=== PATIENT | male | born 1975 | race Caucasian/White ===

== ENCOUNTER 2017-05-01 18:51 | Emergency (ER) | payer MEDICAID ==
[~2017-05-01] VITALS: Ht 175.3 cm; Wt 85.5 kg
[~2017-05-01 18:51] MED LIST: AMLO-145 PO; ASPI-664 PO; ESCI10TA PO; HYDR25TA6 PO; ISOS30TA PO; LISI10TA2 PO
[2017-05-01 18:57] VITALS: Ht 175.3 cm; Wt 85.5 kg
[2017-05-01] MEDS ORDERED: ASPIRIN 325 MG TAB PO STA (20:08)
[2017-05-01] MEDS ORDERED: NITROGLYCERIN (SL) 0.4 MG TAB SL PRN (20:30)
[2017-05-01] MEDS ORDERED: SIMV20TA PO (20:53)
[2017-05-01] MEDS ORDERED: HYD25 PO (20:53)
[2017-05-01] MEDS ORDERED: METF500T4 PO (20:54)
[2017-05-01] MEDS ORDERED: ASPI-664 PO (20:54)
[2017-05-01] MEDS ORDERED: ESCI10TA48 PO (20:55)
[2017-05-01] MEDS ORDERED: AMLO-218 PO (20:55)
[2017-05-01] MEDS ORDERED: NEBI5TAB9 PO (20:55)
[2017-05-01] MEDS ORDERED: EMPA10TA PO (20:55)
[2017-05-01] MEDS ORDERED: CHOL500010 PO (20:56)
[2017-05-01] MEDS ORDERED: LISI40TA9 PO (20:56)
[2017-05-01 21:09] LABS: ANION GAP 22 (8-16); BLOOD UREA NITROGEN 15 mg/dl (7-20); CALCIUM 9.5 mg/dl (8.4-10.2); CARBON DIOXIDE 22 mmol/L (21-31); CHLORIDE 104 mmol/L (97-110); CREATININE 0.86 mg/dl (0.61-1.24); GLUCOSE 162 mg/dl (70-220); POTASSIUM 4.1 mmol/L (3.5-5.1); SODIUM 144 mmol/L (135-144)
[2017-05-01 21:12] LABS: BASOPHIL # 0.1 10^3/ul (0.0-0.1); BASOPHILS % 0.6 % (0.0-2.0); EOSINOPHILS # 0.4 10^3/ul (0.0-0.5); HEMATOCRIT 43.7 % (42.0-52.0); HEMOGLOBIN 16.4 g/dl (14.0-18.0); LYMPHOCYTES % 33.9 % (15.0-51.0); MEAN CORPUSCULAR HEMOGLOBIN 34.6 pg (29.0-33.0); MEAN CORPUSCULAR HGB CONC 37.5 g/dl (32.0-37.0); MEAN CORPUSCULAR VOLUME 92.2 fl (82.0-101.0); MEAN PLATELET VOLUME 9.6 fl (7.4-10.4); MONOCYTE # 0.5 10^3/ul (0.3-0.9); MONOCYTES % 6.2 % (0.0-11.0); NEUTROPHILS % 55.1 % (39.0-77.0); PLATELET COUNT 274 10^3/UL (140-415); RED BLOOD COUNT 4.74 10^6/ul (4.70-6.10); RED CELL DISTRIBUTION WIDTH 11.9 % (11.5-14.5); WHITE BLOOD COUNT 8.7 10^3/ul (4.8-10.8)
--- NOTE | 2017-05-01 21:27 | ERD ---
ER Documentation Chief Complaint Date/Time DATE: 05/01/17 TIME: 21:15 Chief Complaint pressure like chest pain on and off x 2 weeks HPI This 41-year-old male with history of hypertension comes in for left-sided chest pain intermittently for 2 weeks. No shortness of breath. Palpation makes the pain worse. Also gets numbness in his left upper arm. No nausea or vomiting ROS All systems reviewed and are negative except as per history of present illness. Medications Home Meds Active Scripts Ranitidine Hcl* (Zantac*) 150 Mg Tablet, 150 MG PO BID, #30 TAB Prov:QUINN NAVARRO DO 05/01/17 Reported Medications Cholecalciferol (Vitamin D3) 5,000 Unit Tablet, 5000 UNIT PO DAILY, TAB 05/01/17 Lisinopril* (Lisinopril*) 40 Mg Tablet, 40 MG PO DAILY, #30 TAB 05/01/17 Amlodipine Besylate* (Norvasc*) 10 Mg Tablet, 10 MG PO DAILY, TAB 05/01/17 Escitalopram Oxalate* (Escitalopram Oxalate*) 10 Mg Tablet, 10 MG PO DAILY, #30 TAB 05/01/17 Nebivolol* (Bystolic*) 5 Mg Tab, 5 MG PO DAILY, #30 TAB 05/01/17 Empagliflozin (Jardiance) 10 Mg Tablet, 10 MG PO DAILY, TAB 05/01/17 Aspirin* (Aspirin* EC) 81 Mg Tablet.dr, 81 MG PO DAILY, TAB 05/01/17 Metformin Hcl* (Metformin Hcl*) 500 Mg Tablet, 500 MG PO WITH BREAKFAST DINNE, # 60 TAB 05/01/17 Hydrochlorothiazide* (Hydrochlorothiazide*) 25 Mg Tab, 25 MG PO DAILY, #30 TAB 05/01/17 Simvastatin* (Zocor*) 20 Mg Tablet, 20 MG PO QHS, #30 TAB 05/01/17 Discontinued Reported Medications Escitalopram Oxalate* (Lexapro*) 10 Mg Tablet, 10 MG PO DAILY, TAB 05/25/14 Aspirin* (Aspirin* EC) 81 Mg Tablet.dr, 81 MG PO DAILY, TAB 05/25/14 Amlodipine Besylate* (Amlodipine Besylate*) 5 Mg Tablet, 5 MG PO DAILY for ELEVATED BLOOD PRESSURE 12/12/13 Hydrochlorothiazide (Hydrochlorothiazide) 25 Mg Tablet, 25 MG PO DAILY for ELEVATED BLOOD PRESSURE 12/12/13 Lisinopril* (Lisinopril*) 10 Mg Tablet, 40 MG PO DAILY for ELEVATED BLOOD PRESSURE 12/12/13 Discontinued Scripts Isosorbide Mononitrate* (Imdur*) 30 Mg Tab.sr.24h, 30 MG PO DAILY for 30 Days, TAB Prov:MOLLY ROBERTS. 05/27/14 Allergies Allergies: Coded Allergies: No Known Allergy (Unverified , 05/01/17) PMhx/Soc History of Surgery: Yes (tonsilectomy, surgery left index finger) Anesthesia Reaction: No Hx Neurological Disorder: No Hx Respiratory Disorders: No Hx Cardiac Disorders: Yes (HTN, hyperlipids) Hx Psychiatric Problems: Yes (ANXIETY) Hx Miscellaneous Medical Probl: Yes (DM) Hx Alcohol Use: Yes (OCCASSIONALLY) Hx Substance Use: No Hx Tobacco Use: Yes (OCCASSIONALLY) Smoking Status: Light tobacco smoker Physical Exam Vitals Vital Signs Date Time Temp Pulse Resp B/P Pulse Ox O2 Delivery O2 Flow Rate FiO2 05/01/17 22:08 66 18 141/81 98 Room Air 05/01/17 18:57 97.8 94 20 191/96 98 Physical Exam Const: [] No distress Head: Atraumatic Eyes: Normal Conjunctiva ENT: Normal External Ears, Nose and Mouth. Neck: Full range of motion..~ No meningismus. Resp: Clear to auscultation bilaterally Cardio: Regular rate and rhythm, no murmurs, Moderate tenderness to palpation of left anterior chest wall. Abd: Soft, non tender, non distended. Normal bowel sounds Skin: No petechiae or rashes Back: No midline or flank tenderness Ext: No cyanosis, or edema Neur: Awake and alertAnd oriented 3, no focal deficits Psych: Normal Mood and Affect Result Diagram: 05/01/17201905/01/172019 Results 24 hrs Laboratory Tests Test 05/01/17 20:20 White Blood Count 8.710^3/ul Red Blood Count 4.7410^6/ul Hemoglobin 16.4g/dl Hematocrit 43.7% Mean Corpuscular Volume 92.2fl Mean Corpuscular Hemoglobin 34.6pg Mean Corpuscular Hemoglobin Concent 37.5g/dl Red Cell Distribution Width 11.9% Platelet Count 62098^3/UL Mean Platelet Volume 9.6fl Neutrophils % 55.1% Lymphocytes % 33.9% Monocytes % 6.2% Eosinophils % 4.0% Basophils % 0.6% Nucleated Red Blood Cells % 0.0/100WBC Neutrophils # (Manual) 4.810^3/ul Lymphocytes # 3.010^3/ul Monocytes # 0.510^3/ul Eosinophils # 0.410^3/ul Basophils # 0.110^3/ul Nucleated Red Blood Cells # 0.010^3/ul Sodium Level 144mmol/L Potassium Level 4.1mmol/L Chloride Level 104mmol/L Carbon Dioxide Level 22mmol/L Anion Gap 22 Blood Urea Nitrogen 15mg/dl Creatinine 0.86mg/dl Glucose Level 162mg/dl Calcium Level 9.5mg/dl Troponin I < 0.012ng/ml B-Type Natriuretic Peptide < 11PG/ML Current Medications Medications (Trade) Dose Ordered Sig/Karen Route PRN Reason Start Time Stop Time Status Last Admin Dose Admin Aspirin (Aspirin) 325 mg ONCE STAT PO 05/01/17 20:08 05/01/17 20:10 DC 05/01/17 20:20 Nitroglycerin (Nitroglycerin (Sl Tab) 0.4 Mg) 1 tab Q5M UP TO 3 DOSES PRN SL CHEST PAIN 05/01/17 20:30 05/01/17 20:21 Ketorolac Tromethamine (Toradol) 30 mg ONCE ONCE IV 05/01/17 21:40 05/01/17 21:41 DC 05/01/17 21:45 Procedures/MDM Is 41-year-old male comes in for atypical chest pain. Is currently normal EKG. Was given aspirin, nitroglycerin tab, GI cocktail. Said his pain was better in the emergency room. No shortness of breath or any other symptoms currently. His troponin is negative after days of chest pain going to discharge with primary care follow-up in the next 2 days as well as recommendation for an outpatient echocardiogram. EKG interpretation: Normal sinus rhythm rate of 80, normal axis, normal intervals, no ST or T-wave changes concerning for acute ischemia. Normal EKG gambling monitor interpretation: Normal sinus rhythm without arrhythmias Chest x-ray interpretation: See no acute process, no widened mediastinum, pneumothorax, no fractures, no pulmonary edema. Departure Diagnosis: Primary Impression: Chest pain Condition: Stable QUINN NAVARRO DO May 01, 2017 21:25
[2017-05-01 21:32] LABS: B-TYPE NATRIURETIC PEPTIDE < 11 PG/ML (0-125); TROPONIN-I < 0.012 ng/ml (0.00-0.12)
[2017-05-01] MEDS ORDERED: KETOROLAC 30 MG INJ IV ONE (21:40)
--- NOTE | 2017-05-01 21:41 | RADRPT ---
PROCEDURE: XR Chest. CLINICAL INDICATION: Chest pain. TECHNIQUE: Single frontal view. COMPARISON: 05/25/2014. FINDINGS: The lungs are clear. The heart size is normal. There is no pleural effusion. There is no pneumothorax. IMPRESSION: 1. Normal chest radiograph. 2. No change from 05/25/2014. RPTAT: QQ .Michael Maher MD, MD Date Time Electronically viewed and signed by .Michael Maher MD, MD on 05/01/2017 21:41 .R/
[2017-05-01] MEDS ORDERED: RANI150T9 PO (22:07)
[2017-05-01 22:08] VITALS: BP 141/81; PULSE 66; RESP 18
== END 2017-05-01 22:22 | disposition home or self-care (01) ==
LOC: E/R 18:51
DX: R07.89 Other chest pain (principal); I10 Essential (primary) hypertension; E11.9 Type 2 diabetes mellitus without complications; F17.210 Nicotine dependence, cigarettes, uncomplicated; R06.02 Shortness of breath; Z79.82 Long term (current) use of aspirin; Z79.84 Long term (current) use of oral hypoglycemic drugs
CPT/HCPCS: 36415; 71010; 80048; 83880; 84484; 85025; 93005; 96374; J1885; Z7502; Z7610

== ENCOUNTER 2018-02-22 12:31 | Emergency (ER) | END 2018-02-22 16:26 | disposition home or self-care (01) ==

== ENCOUNTER 2018-12-03 17:20 | Observation (INO) | payer MEDICAID ==
[~2018-12-03] VITALS: Ht 167.6 cm; Wt 81.0 kg
[~2018-12-03 17:20] MED LIST changes: -AMLO-145 PO; +AMLO-218 PO; -ASPI-664 PO; +ASPI-817 PO; +CHOL500010 PO; +EMPA10TA PO; -ESCI10TA PO; +ESCI10TA48 PO; +IBUP-1542 PO; -ISOS30TA PO; -LISI10TA2 PO; +LISI40TA3 PO; +METF500T24 PO; +NEBI5TAB9 PO; +RANI150T35 PO; +SIMV20TA PO
[2018-12-03 17:36] VITALS: Ht 167.6 cm; Wt 81.0 kg
[2018-12-03] MEDS ORDERED: ASPIRIN 81 MG TAB PO STA (18:19)
[2018-12-03] MEDS ORDERED: ONDANSETRON 4 MG INJ IV STA (18:19)
[2018-12-03] MEDS ORDERED: NITROGLYCERIN 2% 1 GM OINT PKT TD STA (18:19)
[2018-12-03] MEDS ORDERED: morphine 4 MG/ML VIAL IV STA (18:19)
[2018-12-03] MEDS ORDERED: NITROGLYCERIN (SL) 0.4 MG TAB SL PRN ×2 (18:30→20:00)
--- NOTE | 2018-12-03 19:48 | ERD ---
ER Documentation Chief Complaint Chief Complaint CP radiating to L arm 06/10 X 1 day HPI Patient is a 43-year-old male with hypertension and diabetes who presents with chest pain. The patient has left-sided chest pain and left-sided arm pain. He also has headache. He feels like his left arm is asleep. He said the symptoms started this morning and have been constant. He tried Advil with no help. Upon review of old medical records this is the patient's sixth visit to the ER since 2012. He does have a primary doctor. ROS All systems reviewed and are negative except as per history of present illness. Medications Home Meds Active Scripts Ibuprofen* (Motrin*) 600 Mg Tab, 600 MG PO Q6H PRN for PAIN AND OR ELEVATED TEMP, #30 TAB Prov:AGNIESZKA HERNDON MD 02/22/18 Ranitidine Hcl* (Zantac*) 150 Mg Tablet, 150 MG PO BID, #30 TAB Prov:QUINN NAVARRO DO 05/01/17 Reported Medications Cholecalciferol (Vitamin D3) 5,000 Unit Tablet, 5000 UNIT PO DAILY, TAB 05/01/17 Lisinopril* (Lisinopril*) 40 Mg Tablet, 40 MG PO DAILY, #30 TAB 05/01/17 Amlodipine Besylate* (Norvasc*) 10 Mg Tablet, 10 MG PO DAILY, TAB 05/01/17 Escitalopram Oxalate* (Escitalopram Oxalate*) 10 Mg Tablet, 10 MG PO DAILY, #30 TAB 05/01/17 Nebivolol* (Bystolic*) 5 Mg Tab, 5 MG PO DAILY, #30 TAB 05/01/17 Empagliflozin (Jardiance) 10 Mg Tablet, 10 MG PO DAILY, TAB 05/01/17 Aspirin* (Aspirin* EC) 81 Mg Tablet.dr, 81 MG PO DAILY, TAB 05/01/17 Metformin Hcl* (Metformin Hcl*) 500 Mg Tablet, 500 MG PO WITH BREAKFAST DINNE, #60 TAB 05/01/17 Hydrochlorothiazide* (Hydrochlorothiazide*) 25 Mg Tab, 25 MG PO DAILY, #30 TAB 05/01/17 Simvastatin* (Zocor*) 20 Mg Tablet, 20 MG PO QHS, #30 TAB 05/01/17 Allergies Allergies: Coded Allergies: No Known Allergy (Unverified , 05/01/17) PMhx/Soc History of Surgery: Yes (tonsilectomy, surgery left index finger) Anesthesia Reaction: No Hx Neurological Disorder: No Hx Respiratory Disorders: No Hx Cardiac Disorders: Yes (HTN, hyperlipids) Hx Psychiatric Problems: Yes (ANXIETY) Hx Miscellaneous Medical Probl: Yes (DM) Hx Alcohol Use: Yes (OCCASSIONALLY) Hx Substance Use: No Hx Tobacco Use: Yes (OCCASSIONALLY) Smoking Status: Current some day smoker FmHx Family History: diabetes Physical Exam Vitals Vital Signs Date Temp Pulse Resp B/P (MAP) Pulse Ox O2 O2 Flow FiO2 Time Delivery Rate 12/03/18 75 15 142/94 Room Air 19:20 (110) 12/03/18 98.4 88 18 202/120 99 17:36 (147) Physical Exam Const: Moderate distress Head: Atraumatic Eyes: Normal Conjunctiva ENT: Normal External Ears, Nose and Mouth. Neck: Full range of motion. No meningismus. Resp: Clear to auscultation bilaterally Cardio: Regular rate and rhythm, no murmurs Abd: Soft, non tender, non distended. Normal bowel sounds Skin: No petechiae or rashes Back: No midline or flank tenderness Ext: No cyanosis, or edema Neur: Awake and alert, cranial nerves II through XII are intact, strength is 5 out of 5 in all 4 extremities Psych: Normal Mood and Affect Result Diagram: 12/03/18 1836 12/03/18 1836 Results 24 hrs Laboratory Tests Test 12/03/18 18:36 White Blood Count 9.3 10^3/ul Red Blood Count 5.45 10^6/ul Hemoglobin 17.9 g/dl Hematocrit 49.6 % Mean Corpuscular Volume 91.0 fl Mean Corpuscular Hemoglobin 32.8 pg Mean Corpuscular Hemoglobin Concent 36.1 g/dl Red Cell Distribution Width 11.5 % Platelet Count 290 10^3/UL Mean Platelet Volume 9.4 fl Immature Granulocytes % 0.400 % Neutrophils % 56.8 % Lymphocytes % 35.6 % Monocytes % 5.8 % Eosinophils % 0.9 % Basophils % 0.5 % Nucleated Red Blood Cells % 0.0 /100WBC Immature Granulocytes # 0.040 10^3/ul Neutrophils # 5.3 10^3/ul Lymphocytes # 3.3 10^3/ul Monocytes # 0.5 10^3/ul Eosinophils # 0.1 10^3/ul Basophils # 0.1 10^3/ul Nucleated Red Blood Cells # 0.0 10^3/ul Sodium Level 140 mmol/L Potassium Level 3.8 mmol/L Chloride Level 98 mmol/L Carbon Dioxide Level 27 mmol/L Anion Gap 15 Blood Urea Nitrogen 11 mg/dl Creatinine 0.69 mg/dl Est Glomerular Filtrat Rate mL/min > 60 mL/min Glucose Level 189 mg/dl Calcium Level 9.9 mg/dl Troponin I < 0.012 ng/ml Current Medications Medications Dose Sig/Karen Start Time Status Last (Trade) Ordered Route PRN Stop Time Admin Dose Reason Admin Aspirin 162 mg ONCE STAT 12/03/18 DC 12/03/18 (Aspirin) PO 18:19 12/03/18 18:43 18:20 1 inch ONCE STAT 12/03/18 DC 12/03/18 Nitroglycerin TD 18:12/03/18 18:43 18:20 (Nitroglyceri n 2% Oint) 1 tab Q5M UP TO 3 12/03/18 Nitroglycerin DOSES PRN 18:30 SL .CHEST (Nitroglyceri PAIN n (Sl Tab) 0.4 Mg) Morphine 4 mg ONCE STAT 12/03/18 DC 12/03/18 Sulfate IV 18:12/03/18 18:42 (morphine) 18:20 Ondansetron 4 mg ONCE STAT 12/03/18 DC 12/03/18 HCl (Zofran IV 18:12/03/18 18:42 Inj) 18:20 Procedures/MDM EKG read by me: Rate/Rhythm: Regular rate and rhythm at a rate of 75 Intervals: Normal Impression: No evidence of ischemia or arrhythmia Chest x-ray negative per radiology. CT scan of the brain negative per radiology. Smoking Cessation Therapy: Pt. was lectured for greater than 3 minutes on the health risks of continued smoking and the benefits of cessation. Patient is a 43-year-old male with multiple cardiac risk factors who presents with chest pain and headache. Initial troponin is negative. CT scan of the brain is negative. At this point I doubt pneumonia, pneumothorax, pulmonary embolism, or aortic dissection. I am concerned for possible acute coronary syndrome. The patient was given aspirin and nitroglycerin as well as morphine. The patient will be admitted to the care of Dr. Burk from the panel team to a telemetry observation bed. Departure Diagnosis: Primary Impression: Chest pain Chest pain type: unspecified Qualified Codes: R07.9 - Chest pain, unspecified Condition: DISHA Velez MD Dec 03, 2018 19:48
--- NOTE | 2018-12-03 19:57 | HP ---
Date/Time of Note Date/Time of Note DATE: 12/03/18 TIME: 19:57 Assessment/Plan VTE Prophylaxis SCD applied (from Nsg): Yes Pharmacological prophylaxis: NA/contraindicated Pharm contraindication: low risk/ambulating Lines/Catheters IV Catheter Type (from Nrsg): Saline Lock Assessment/Plan Hospital Course This is a 43-year-old male being admitted to the telemetry floor for observation for: #1: Chest pain: Rule out ACS versus musculoskeletal versus other: We will check an echocardiogram, cardiac enzymes x3, PRN nitro/morphine. Will check hemoglobin A1c, lipid panel, TSH. EKG is nonischemic. #2 Accelerated hypertension: Patient did present with systolic BP in the 200s. Will resume lisinopril, hydrochlorothiazide, amlodipine, monitor patient's blood pressures. #3 diabetes mellitus: We will check hemoglobin A 1C, currently will hold home oral medications in case of need for cardiac catheterization. #4 mood disorder: Continue escitalopram #5 GERD: Continue ranitidine #6 DVT GI prophylaxis: SCDs, no GI prophylaxis indicated Further treatment strategy will be implemented as per the clinical course. Result Diagram: 12/03/18 1836 12/03/18 1836 Results 24hrs Laboratory Tests Test 12/03/18 18:36 White Blood Count 9.3 # Red Blood Count 5.45 Hemoglobin 17.9 Hematocrit 49.6 Mean Corpuscular Volume 91.0 Mean Corpuscular Hemoglobin 32.8 Mean Corpuscular Hemoglobin Concent 36.1 Red Cell Distribution Width 11.5 Platelet Count 290 Mean Platelet Volume 9.4 Immature Granulocytes % 0.400 Neutrophils % 56.8 Lymphocytes % 35.6 Monocytes % 5.8 Eosinophils % 0.9 Basophils % 0.5 Nucleated Red Blood Cells % 0.0 Immature Granulocytes # 0.040 H Neutrophils # 5.3 Lymphocytes # 3.3 H Monocytes # 0.5 Eosinophils # 0.1 Basophils # 0.1 Nucleated Red Blood Cells # 0.0 Sodium Level 140 Potassium Level 3.8 Chloride Level 98 Carbon Dioxide Level 27 Anion Gap 15 H Blood Urea Nitrogen 11 Creatinine 0.69 Est Glomerular Filtrat Rate mL/min > 60 Glucose Level 189 Calcium Level 9.9 Troponin I < 0.012 HPI/ROS Admit Date/Time Admit Date/Time Hx of Present Illness Complaint: Chest pain This is a 43-year-old male with hypertension and diabetes who presents with chest pain. The patient has left-sided chest pain and left-sided arm pain. He also has headache. He feels like his left arm is asleep. He said the symptoms started this morning and have been constant. He tried Advil with no help. He states that he has had headaches and elevated blood pressure for the last few days. Allergies: NKDA Medications: See EARL IZQUIERDO Const: As per HPI Eyes : No pain discharge or redness or change in visual acuity ENT: No pain, sore throat, congestion, congestion, dysphagia or discharge Respiratory: No shortness of breath, cough, sputum, wheezing, or pleuritic pain Cardiovascular: As per HPI GI : no change in appetite, abdominal pain, nausea, vomiting, diarrhea, constipation, or change in the color his stool Genitourinary: No dysuria, hematuria, flank pain , discharge or CVA tenderness Musculoskeletal: No joint pain, back pain, neck pain, restricted range of motion in neck or joints Skin: No rash, bruising or hives Neuro: As per HPI Endocrine: No polyuria, polydipsia, temperature intolerance Psych: No hallucination, depression, anxiety or suicidal ideation PMH/Family/Social Past Medical History Hypertension, diabetes mellitus, mood disorder, GERD Medications Current Medications Nitroglycerin (Nitroglycerin (Sl Tab) 0.4 Mg) 1 tab Q5M UP TO 3 DOSES PRN SL .CHEST PAIN; Start 12/03/18 at 18:30 Ondansetron HCl (Zofran Inj) 4 mg ER BRIDGE PRN IV NAUSEA/VOMITING; Start 12/03/18 at 20:00; Stop 12/04/18 at 19:59 Acetaminophen (Tylenol Tab) 650 mg ER BRIDGE PRN PO .MILD PAIN 1-3 OR TEMP; Start 12/03/18 at 20:00; Stop 12/04/18 at 19:59 IV Flush (NS 3 ml) 3 ml PER PROTOCOL IV ; Start 12/03/18 at 20:00; Status UNV Ondansetron HCl (Zofran Inj) 4 mg Q6H PRN IV NAUSEA/VOMITING; Start 12/03/18 at 20:00; Status UNV Nitroglycerin (Nitroglycerin (Sl Tab) 0.4 Mg) 1 tab Q5M PRN SL .CHEST PAIN; Start 12/03/18 at 20:00; Status UNV Acetaminophen (Tylenol Tab) 650 mg Q6H PRN PO .PAIN 1-3 OR TEMP; Start 12/03/18 at 20:00; Status UNV Morphine Sulfate (morphine) 2 mg Q4H PRN IV .PAIN 7-10; Start 12/03/18 at 20:00; Status UNV Docusate Sodium (Colace) 100 mg Q12H PRN PO .CONSTIPATION; Start 12/03/18 at 20:00; Status UNV Bisacodyl (Dulcolax) 5 mg DAILY PRN PO .CONSTIPATION; Start 12/03/18 at 20:00; Status UNV Coded Allergies: No Known Allergy (Unverified , 12/03/18) Past Surgical History Diagnostic heart catheterization Family History Significant Family History: no pertinent family hx Social History Alcohol Use: none Smoking Status: Current some day smoker Drug Use: none Exam/Review of Systems Vital Signs Vitals Vital Signs Date Temp Pulse Resp B/P (MAP) Pulse Ox O2 O2 Flow FiO2 Time Delivery Rate 12/03/18 75 15 142/94 Room Air 19:20 (110) 12/03/18 98.4 99 17:36 Exam Exam General: Patient is a pleasant male currently lying in bed he does not appear to be in acute distress but he does have mild discomfort from his headache HEENT: Atraumatic, normocephalic. The pupils are equal, round and reactive. Extraocular motor are intact Neck: Supple with full range of motion. No rigidity or meningismus Chest: Nontender Lungs: Clear to auscultation bilaterally no crackles rales or wheezing Heart: Normal S1-S2, Regular rhythm and rate. No overt murmurs appreciated on auscultation Abdomen: Soft , nontender, nondistended , bowel sounds are present. No guarding no rebound tenderness , No masses or organomegaly. No costovertebral temporal angle mass Extremities: Normal to inspection, no edema no cyanosis Neurologic: Normal mental status, speech normal, cranial nerves II through XII are intact, motor and sensory are intact, Additional Comments PROCEDURE: CT Brain without contrast. CLINICAL INDICATION: Headache. TECHNIQUE: A CT of the brain without contrast was performed utilizing axial sections from the skull base through the vertex. One or more the following does reduction techniques were utilized: Automated exposure control, adjustment of the mA/ or kV according to patient's size, or use of iterative reconstruction technique. Total exam CTDIvol is 38 MGy and DLP is 634 mGy-cm. DICOM images are available. COMPARISON: Brain CT 05/25/2014. FINDINGS: The ventricles and sulci are age-appropriate. There is no intracranial hemorrhage, mass effect or midline shift. No abnormal intra-axial or extra- axial fluid collections are seen. The villanueva/white matter differentiation is preserved. No acute skull abnormality is noted. The visualized paranasal sinuses are essentially clear. IMPRESSION: 1. No acute intracranial hemorrhage, transcortical infarction or mass effect. RPTAT: N .Yolanda Martin MD, Date Time Electronically viewed and signed by .Yolanda Martin MD, MD on 12/03/2018 19:23 .N/ CC: DISHA EMMANUEL MD [id number] PROCEDURE: XR Chest, 1 View CLINICAL INDICATION: Chest pain. TECHNIQUE: Frontal view of the chest. COMPARISON: 05/25/2014 FINDINGS: LUNGS: Unremarkable. No consolidation. PLEURAL SPACE: Unremarkable. No pneumothorax. HEART: Unremarkable. No cardiomegaly. MEDIASTINUM: Unremarkable. BONES/JOINTS: Unremarkable. IMPRESSION: 1. No acute cardiopulmonary disease demonstrated. 2. There is no significant interval change from the previous study. RPTAT: [facility] Dae Youssef, Physician [employer] Mill Operator Date Time Electronically viewed and signed by Dae Youssef, Physician [employer] Mill Operator on 12/03/2018 18:53 RmC/ CC: DISHA EMMANUEL MD [id number] EKG Rate/Rhythm: Regular rate and rhythm at a rate of 75 Intervals: Normal Impression: No evidence of ischemia or arrhythmia SISSY LEIJA Dec 03, 2018 19:57
[2018-12-03] MEDS ORDERED: DOCUSATE SODIUM 100 MG CAP PO PRN (20:00)
[2018-12-03] MEDS ORDERED: ONDANSETRON 4 MG INJ IV PRN ×2 (20:00)
[2018-12-03] MEDS ORDERED: NACL 0.9% 3 ML SYG IV SCH (20:00)
[2018-12-03] MEDS ORDERED: morphine 2 MG INJ IV PRN (20:00)
[2018-12-03] MEDS ORDERED: ACETAMINOPHEN 325 MG TAB PO PRN ×2 (20:00)
[2018-12-03] MEDS ORDERED: BISACODYL (EC) 5 MG TAB PO PRN (20:00)
[2018-12-03 22:10] VITALS: PULSE 88
[2018-12-03 22:30] VITALS: BP 171/77; PULSE 88; RESP 18
[2018-12-03] MEDS ORDERED: hydrALAzine 20 MG INJ IV PRN (22:30)
[2018-12-04] VITALS (9 sets, daily range): BP systolic 124–144; BP diastolic 72–84; PULSE 49–77; RESP 19–22
[2018-12-04] MEDS: ESCITALOPRAM 10 MG TAB PO SCH (09:03)
[2018-12-04] MEDS: ASPIRIN (EC) 81 MG TAB PO SCH (09:03)
[2018-12-04] MEDS: AMLODIPINE 10 MG TAB PO SCH (09:03)
[2018-12-04] MEDS: RANITIDINE 150 MG TAB PO SCH ×2 (09:03→21:18)
[2018-12-04] MEDS: HYDROCHLOROTHIAZIDE 25 MG TAB PO SCH (09:04)
[2018-12-04] MEDS: LISINOPRIL 20 MG TAB PO SCH (09:04)
--- NOTE | 2018-12-04 09:30 | PN ---
Date/Time of Note Date/Time of Note DATE: 12/04/18 TIME: 09:29 Assessment/Plan VTE Prophylaxis Risk score (from Ns)>0 risk: 2 SCD applied (from Ns): No SCD contraindicated: low risk/ambulating Pharmacological prophylaxis: NA/contraindicated Pharm contraindication: low risk/ambulating Lines/Catheters IV Catheter Type (from [facility]): Saline Lock Urinary Cath still in place: No Assessment/Plan Hospital Course SUBJECTIVE: Denies any chest pain at this time. OBJECTIVE: Physical Exam General: Adequately build 43 year-old male lying in bed in no apparent distress. HEENT: Normocephalic, atraumatic. Eyes: Anicteric sclerae, conjunctivae clear. ENT: Nasal septum midline, oral mucosa moist. Neck supple, no JVD noticed. Respiratory: Bilaterally clear breath sounds. No use of accessory muscles of respiration. No adventitious breath sounds. Cardiovascular: S1, S2 heard. Regular rate and rhythm. Abdomen: Soft, nontender, and nondistended. Bowel sounds positive in all 4 quadrants. Genitourinary: Deferred. Extremities: No cyanosis, no clubbing, no edema. Peripheral pulses palpable. Neurologic: Cranial nerves II through XII grossly intact. The patient is awake, alert, and oriented. Skin: Normal skin turgor. No skin rashes. Labs & Vitals per chart ASSESSMENT & PLAN 43-year-old male with past medical history of hypertension, diabetes mellitus type 2, mood disorder, and GERD who came to the emergency room with a chief complaint of chest pain. The patient verbalized chest pain as left-sided with left-sided arm pain. In the emergency room, the patient was noticed to have a blood pressure of 202/120. The patient was admitted to inpatient setting for further treatment and evaluation. 1. Chest pain. -To rule out ACS. -Serial troponins negative so far. -Pending 2D echocardiogram. -Continue aspirin and statins. 2. Hypertensive urgency. -Lower blood pressure gradually. 3. Dyslipidemia. -Elevated total cholesterol and elevated triglycerides. -Continue statins. -Add omega-3. 4. Diabetes mellitus type 2. -Hemoglobin A1c 9.7. -Continue sliding scale insulin along with basal insulin and pre-meal insulin. 5. Nicotine use. -Cessation advised. 6. Mood disorder. -Continue mood stabilizers. 7. Fluids, electrolytes, and nutrition. -Carbohydrate controlled diet. 8. DVT prophylaxis -Bilateral SCDs. -Ambulation. 9. Plan. -Continue telemetry monitoring. -Await 2D echocardiogram. The patient was seen in collaboration with Dr. Gonzales. Result Diagram: 12/04/18 0612/04/18 0601 Results 24hrs Laboratory Tests Test 12/03/18 18:36 12/04/18 00:21 12/04/18 06:01 White Blood Count 9.3 # 8.1 Red Blood Count 5.45 4.99 Hemoglobin 17.9 16.0 Hematocrit 49.6 46.3 Mean Corpuscular Volume 91.0 92.8 Mean Corpuscular Hemoglobin 32.8 32.1 Mean Corpuscular Hemoglobin Concent 36.1 34.6 Red Cell Distribution Width 11.5 11.7 Platelet Count 290 263 Mean Platelet Volume 9.4 9.5 Immature Granulocytes % 0.400 0.400 Neutrophils % 56.8 57.5 Lymphocytes % 35.6 33.4 Monocytes % 5.8 6.6 Eosinophils % 0.9 1.7 Basophils % 0.5 0.4 Nucleated Red Blood Cells % 0.0 0.0 Immature Granulocytes # 0.040 H 0.030 Neutrophils # 5.3 4.6 Lymphocytes # 3.3 H 2.7 Monocytes # 0.5 0.5 Eosinophils # 0.1 0.1 Basophils # 0.1 0.0 Nucleated Red Blood Cells # 0.0 0.0 Sodium Level 140 139 Potassium Level 3.8 4.1 Chloride Level 98 102 Carbon Dioxide Level 27 25 Anion Gap 15 H 12 Blood Urea Nitrogen 11 14 Creatinine 0.69 0.74 Est Glomerular Filtrat Rate mL/min > 60 > 60 Glucose Level 189 182 Calcium Level 9.9 9.5 Troponin I < 0.012 < 0.012 < 0.012 Creatine Kinase 109 97 Creatine Kinase Index 0.3 0.3 Creatinine Kinase MB (Mass) 0.30 0.29 Hemoglobin A1c 9.7 H Magnesium Level 1.9 Total Bilirubin 0.6 Direct Bilirubin 0.00 Indirect Bilirubin 0.6 Aspartate Amino Transf (AST/SGOT) 35 Alanine Aminotransferase (ALT/SGPT) 22 Alkaline Phosphatase 82 Total Protein 6.7 Albumin 4.1 Globulin 2.60 Albumin/Globulin Ratio 1.57 Triglycerides Level 423 H Cholesterol Level 215 H LDL Cholesterol, Calculated 93 HDL Cholesterol 37 Cholesterol/HDL Ratio 5.8 Thyroid Stimulating Hormone (TSH) 2.040 Exam/Review of Systems Exam Vitals Vital Signs Date Temp Pulse Resp B/P (MAP) Pulse Ox O2 O2 Flow FiO2 Time Delivery Rate 12/04/18 63 08:07 12/04/18 98.5 22 144/84 96 Room Air 07:32 (104) Intake and Output 12/03/18 12/03/18 12/04/18 1515:00 23:00 07:00 IntakeIntake Total 400 ml BalanceBalance 400 ml Results Results 24hrs Laboratory Tests Test 12/03/18 18:36 12/04/18 00:21 12/04/18 06:01 White Blood Count 9.3 # 8.1 Red Blood Count 5.45 4.99 Hemoglobin 17.9 16.0 Hematocrit 49.6 46.3 Mean Corpuscular Volume 91.0 92.8 Mean Corpuscular Hemoglobin 32.8 32.1 Mean Corpuscular Hemoglobin Concent 36.1 34.6 Red Cell Distribution Width 11.5 11.7 Platelet Count 290 263 Mean Platelet Volume 9.4 9.5 Immature Granulocytes % 0.400 0.400 Neutrophils % 56.8 57.5 Lymphocytes % 35.6 33.4 Monocytes % 5.8 6.6 Eosinophils % 0.9 1.7 Basophils % 0.5 0.4 Nucleated Red Blood Cells % 0.0 0.0 Immature Granulocytes # 0.040 H 0.030 Neutrophils # 5.3 4.6 Lymphocytes # 3.3 H 2.7 Monocytes # 0.5 0.5 Eosinophils # 0.1 0.1 Basophils # 0.1 0.0 Nucleated Red Blood Cells # 0.0 0.0 Sodium Level 140 139 Potassium Level 3.8 4.1 Chloride Level 98 102 Carbon Dioxide Level 27 25 Anion Gap 15 H 12 Blood Urea Nitrogen 11 14 Creatinine 0.69 0.74 Est Glomerular Filtrat Rate mL/min > 60 > 60 Glucose Level 189 182 Calcium Level 9.9 9.5 Troponin I < 0.012 < 0.012 < 0.012 Creatine Kinase 109 97 Creatine Kinase Index 0.3 0.3 Creatinine Kinase MB (Mass) 0.30 0.29 Hemoglobin A1c 9.7 H Magnesium Level 1.9 Total Bilirubin 0.6 Direct Bilirubin 0.00 Indirect Bilirubin 0.6 Aspartate Amino Transf (AST/SGOT) 35 Alanine Aminotransferase (ALT/SGPT) 22 Alkaline Phosphatase 82 Total Protein 6.7 Albumin 4.1 Globulin 2.60 Albumin/Globulin Ratio 1.57 Triglycerides Level 423 H Cholesterol Level 215 H LDL Cholesterol, Calculated 93 HDL Cholesterol 37 Cholesterol/HDL Ratio 5.8 Thyroid Stimulating Hormone (TSH) 2.040 Medications Medication Current Medications Ondansetron HCl (Zofran Inj) 4 mg ER BRIDGE PRN IV NAUSEA/VOMITING; Start 12/03/18 at 20:00; Stop 12/04/18 at 19:59 Acetaminophen (Tylenol Tab) 650 mg ER BRIDGE PRN PO .MILD PAIN 1-3 OR TEMP; Start 12/03/18 at 20:00; Stop 12/04/18 at 19:59 IV Flush (NS 3 ml) 3 ml PER PROTOCOL IV ; Start 12/03/18 at 20:00 Ondansetron HCl (Zofran Inj) 4 mg Q6H PRN IV NAUSEA/VOMITING; Start 12/03/18 at 20:00 Nitroglycerin (Nitroglycerin (Sl Tab) 0.4 Mg) 1 tab Q5M PRN SL .CHEST PAIN; Start 12/03/18 at 20:00 Acetaminophen (Tylenol Tab) 650 mg Q6H PRN PO .PAIN 1-3 OR TEMP; Start 12/03/18 at 20:00 Morphine Sulfate (morphine) 2 mg Q4H PRN IV .PAIN 7-10; Start 12/03/18 at 20:00 Docusate Sodium (Colace) 100 mg Q12H PRN PO .CONSTIPATION; Start 12/03/18 at 20:00 Bisacodyl (Dulcolax) 5 mg DAILY PRN PO .CONSTIPATION; Start 12/03/18 at 20:00 Hydralazine HCl (Apresoline) 10 mg Q4H PRN IV ELEVATED BLOOD PRESSURE; Start 12/03/18 at 22:30 Amlodipine Besylate (Norvasc) 10 mg DAILY PO Last administered on 12/04/18at 09:03; Admin Dose 10 MG; Start 12/04/18 at 09:00 Aspirin (Halfprin) 81 mg DAILY PO Last administered on 12/04/18at 09:03; Admin Dose 81 MG; Start 12/04/18 at 09:00 Escitalopram Oxalate (Lexapro) 10 mg DAILY PO Last administered on 12/04/18at 09:03; Admin Dose 10 MG; Start 12/04/18 at 09:00 Hydrochlorothiazide (Hydrochlorothiazide) 25 mg DAILY PO Last administered on 12/04/18 09:04; Admin Dose 25 MG; Start 12/04/18 at 09:00 Lisinopril (Zestril) 40 mg DAILY PO Last administered on 12/04/18at 09:04; Admin Dose 40 MG; Start 12/04/18 at 09:00 Ranitidine HCl (Zantac) 150 mg BID PO Last administered on 12/04/18at 09:03; Admin Dose 150 MG; Start 12/04/18 at 09:00 Atorvastatin Calcium (Lipitor) 10 mg DAILY@21 PO ; Start 12/04/18 at 21:00 JOHANA OCONNOR NP Dec 04, 2018 09:30
[2018-12-04] MEDS: FISH OIL 1,000 MG CAP PO SCH ×2 (10:16→21:17)
[2018-12-04] MEDS: INSULIN ASPART [NOVOLOG] 3 ML PEN SC SCH ×5 (12:29→21:00)
--- NOTE | 2018-12-04 15:50 | RADRPT ---
Echocardiogram Report Patient Name: RAKEL ROSALESPatient ID: [id number] : 1975 (43y 5m)Study Date: 12/04/2018 9:36:09 AM Gender: MAccession #: [id number] Tech: LE Location: Ref.Physician: SISSY LEIJA Height(Cm): BSA: Weight(Kg): Quality: GoodAccount #: Procedures: Echocardiographic Report: Transthoracic echocardiogram with complete 2D, M-Mode, and doppler examination. Indications: Chest Pain. Measurements: 2D/M Mode Doppler Measurement Value Normal Range Measurement Value Normal Range AoR Diam MM 2.9 [ 2.6 - 3.4 ] cm ESEQUIEL Vmax 2.3 [ 2.0 - 4.0 ] cm2 ACS MM 1.9 [ 3.1 - 3.7 ] cm AV Mean Rolo 1.0 [ 70.0 - 90.0 ] cm/sec LA/Ao MM 1.3 ratio AV Mean PG 4.0 [ 2.0 - 4.0 ] mmHg LA Dimen MM 3.9 AV Peak Rolo 1.4 [ 100.0 - 170.0 ] cm/sec LVIDd 2D 5.3 [ 4.2 - 5.8 ] cm AV Peak PG 8.0 [ 2.0 - 9.0 ] mmHg LVIDs 2D 3.8 [ 2.5 - 4.0 ] cm AV VTI 25.2 cm LVPWd 2D 1.1 [ 0.6 - 1.0 ] cm LVOT Peak Rolo 1.1 [ 70.0 - 110.0 ] cm/sec IVSd 2D 1.1 [ 0.6 - 1.0 ] cm LVOT Peak PG 5.0 [ 2.0 - 6.0 ] mmHg IVS/LVPW 2D 1.0 ratio MV E Peak Rolo 0.9 [ 60.0 - 130.0 ] cm/sec LVOT Diam 1.9 [ 2.3 - 2.9 ] cm MV A Peak Rolo 0.5 [ 100.0 - 120.0 ] cm/sec LVOT Area 2.8 cm2 MV E/A 1.7 [ 0.8 - 1.5 ] ratio MV Decel Time 180 [ 104 - 258 ] msec Lat E` Rolo 0.1 [ 10.0 - 15.0 ] cm/sec Med E` Rolo 0.1 cm/sec MV E/A 1.7 [ 0.8 - 1.5 ] ratio TR Peak Rolo 2.3 [ 100.0 - 280.0 ] cm/sec TR Peak PG 22.0 mmHg PV Peak Rolo 0.6 [ 40.0 - 80.0 ] cm/sec PV Peak PG 2.0 mmHg Findings: Left Ventricle: Normal left ventricular systolic function. Normal left ventricular cavity size. Normal left ventricular wall thickness. Ejection fraction is visually estimated at 55-60 %. Tissue Doppler/Mitral Doppler indices are within normal limits. Right Ventricle: Normal right ventricular size. Normal right ventricular systolic function. Left Atrium: The left atrium is normal in size. Right Atrium: The right atrium is normal in size. Mitral Valve: Normal appearance of the mitral valve. Normal appearance and function of the mitral valve with trace physiologic regurgitation. Aortic Valve: Normal appearance of the aortic valve. No significant aortic stenosis or insufficiency. Tricuspid Valve: Normal appearance of the tricuspid valve. Estimated peak PA systolic pressure 25 mmHg. There is trace tricuspid regurgitation. Pulmonic Valve: Normal pulmonic valve appearance. Pericardium: Normal pericardium with no significant pericardial effusion. Aorta: Normal aortic root. IVC: Normal size and normal respiratory collapse consistent with normal right atrial pressure. Conclusions: Normal left ventricular systolic function. Normal left ventricular cavity size. Normal left ventricular wall thickness. Ejection fraction is visually estimated at 55-60 %. Tissue Doppler/Mitral Doppler indices are within normal limits. No significant valvular stenosis or regurgitation seen. Estimated peak PA systolic pressure 25 mmHg.Normal size and normal respiratory collapse consistent with normal right atrial pressure. Electronically Signed By: Juaquin Law 2018-12-04 15:49:36 PDT
[2018-12-04] MEDS ORDERED: INSULIN GLARGINE [LANTus] (100 UNITS/ML) SYG SC SCH (20:00)
[2018-12-04] MEDS ORDERED: NON-FORMULARY/PATIENT OWN MED (Simvastatin* (Zocor*) 20 MG) PO SCH (21:00)
[2018-12-04] MEDS ORDERED: ATORVASTATIN 40 MG TAB PO SCH (21:00)
[2018-12-04] MEDS ORDERED: ATORVASTATIN 10 MG TAB PO SCH (21:00)
[2018-12-05] VITALS: BP 122/73; PULSE 49; PULSE 58; RESP 19
[2018-12-05 04:00] VITALS: BP 119/73; PULSE 56; RESP 22
[2018-12-05 04:04] VITALS: PULSE 52
[2018-12-05 07:10] VITALS: BP 139/78; PULSE 74; RESP 18
[2018-12-05 08:05] VITALS: PULSE 66
[2018-12-05] MEDS: HYDROCHLOROTHIAZIDE 25 MG TAB PO SCH (08:06)
[2018-12-05] MEDS: RANITIDINE 150 MG TAB PO SCH (08:06)
[2018-12-05] MEDS: LISINOPRIL 20 MG TAB PO SCH (08:07)
[2018-12-05] MEDS: ASPIRIN (EC) 81 MG TAB PO SCH (08:07)
[2018-12-05] MEDS: AMLODIPINE 10 MG TAB PO SCH (08:07)
[2018-12-05] MEDS: FISH OIL 1,000 MG CAP PO SCH (08:07)
[2018-12-05] MEDS: ESCITALOPRAM 10 MG TAB PO SCH (08:07)
[2018-12-05] MEDS: INSULIN ASPART [NOVOLOG] 3 ML PEN SC SCH ×2 (08:16→09:12)
[2018-12-05] MEDS ORDERED: OMEG100024 PO (08:58)
--- NOTE | 2018-12-05 08:59 | PDOCDIS ---
Discharge Instructions CONDITION [id number] Patient Condition: [id number] Stable HOME CARE INSTRUCTIONS: [id number] Special Diet: [id number] Low-cholesterol, low carbohydrate diet. FOLLOW UP/APPOINTMENTS Follow-up Plan Follow-up with your primary care physician in 1 week. OTHER ORDERS: Other Orders: 1. Resume home medications. 2. Follow a low-cholesterol, low carbohydrate diet. 3. Avoid using tobacco. 4. Resume activities as tolerated. 5. Please follow-up with your primary care physician 1 week. 6. Please go to the nearest emergency room if you have any chest pain, shortness of breath, or any other unusual signs/symptoms. JOHANA OCONNOR NP Dec 05, 2018 08:59
--- NOTE | 2018-12-05 09:03 | DS ---
Date/Time of Note Date/Time of Note DATE: 12/05/18 TIME: 09:01 Discharge Summary Admission/Discharge Info Admit Date/Time Dec 03, 2018 at 19:45 Discharge Date/Time Discharge Diagnosis 1. Atypical chest pain. 2. Hypertensive urgency. 3. Dyslipidemia. 4. Diabetes mellitus type 2. Hemoglobin A1c 9.7. 5. Nicotine use. 6. Mood disorder. Patient Condition: Stable Procedures 2D Echocardiogram Conclusions: Normal left ventricular systolic function. Normal left ventricular cavity size. Normal left ventricular wall thickness. Ejection fraction is visually estimated at 55-60 %. Tissue Doppler/Mitral Doppler indices are within normal limits. No significant valvular stenosis or regurgitation seen. Estimated peak PA systolic pressure 25 mmHg.Normal size and normal respiratory collapse consistent with normal right atrial pressure. Hx of Present Illness This is a 43-year-old male with past medical history of hypertension, diabetes mellitus type 2, mood disorder, and GERD who came to the emergency room with a chief complaint of chest pain. The patient verbalized chest pain as left-sided with left-sided arm pain. In the emergency room, the patient was noticed to have a blood pressure of 202/120. The patient was admitted to inpatient setting for further treatment and evaluation. Hospital Course Etiology of the patient's underlying chest pain was evaluated. The patient's serial troponins remained negative. The patient's 2D echocardiogram showed preserved left ventricular ejection fraction. The patient's chest pain could have been most probably musculoskeletal in origin versus from underlying hypertensive urgency. The patient had underlying hypertensive urgency. The patient's blood pressure was lowered gradually. Once the patient's blood pressure remained under control, the patient's blood pressure was stable on his home antihypertensive regimen. The patient's chest pain resolved once the patient's blood pressure was well controlled. The patient has underlying dyslipidemia. The patient was noticed to have significant hypertriglyceridemia (423). Therefore, the patient was started on fish oil along with statins. The patient takes 20 mg of simvastatin at home. The patient was informed about the necessity to increase his statin dose. However, the patient verbalized that he will follow-up with his primary care physician before increasing the statin dose. The patient has underlying diabetes mellitus type 2. The patient was noted to have a hemoglobin A1c of 9.7. At home, the patient is on metformin and SGLT-2 receptor blockers. The patient was informed about the high A1c and possibility of starting insulin. Nevertheless, the patient refused to be on any insulin at home. The patient is a current some day smoker. The patient was reinforced on the importance of staying away from the use of nicotine products. The patient also has underlying mood disorder. The patient was maintained on SSRI. The patient had a stable hospital course. The patient is stable to be discharged home, to be followed up with outpatient director of academic. Discharge Instructions 1. Resume home medications. 2. Follow a low-cholesterol, low carbohydrate diet. 3. Avoid using tobacco. 4. Resume activities as tolerated. 5. Please follow-up with your primary care physician 1 week. 6. Please go to the nearest emergency room if you have any chest pain, shortness of breath, or any other unusual signs/symptoms. The patient verbalized understanding of his discharge instructions. The patient was seen in collaboration with Dr. Gonzales. Home Meds Active Scripts [place]-3/Dha/Epa/Fish Oil (Fish Oil 1,000 mg Softgel) 1,000 Mg Capsule, 2000 MG PO BID, #120 CAP 2 capsules (2000 mg) orally twicedaily Prov:JOHANA OCONNOR NP 12/05/18 Ranitidine Hcl* (Zantac*) 150 Mg Tablet, 150 MG PO BID, #30 TAB Prov:QUINN NAVARRO DO 05/01/17 Reported Medications Cholecalciferol (Vitamin D3) 5,000 Unit Tablet, 5000 UNIT PO DAILY, TAB 05/01/17 Lisinopril* (Lisinopril*) 40 Mg Tablet, 40 MG PO DAILY, #30 TAB 05/01/17 Amlodipine Besylate* (Norvasc*) 10 Mg Tablet, 10 MG PO DAILY, TAB 05/01/17 Escitalopram Oxalate* (Escitalopram Oxalate*) 10 Mg Tablet, 10 MG PO DAILY, #30 TAB 05/01/17 Empagliflozin (Jardiance) 10 Mg Tablet, 10 MG PO DAILY, TAB 05/01/17 Aspirin* (Aspirin* EC) 81 Mg Tablet.dr 81 MG PO DAILY, TAB 05/01/17 Metformin Hcl* (Metformin Hcl*) 500 Mg Tablet, 1000 MG PO WITH BREAKFAST DINNE, #60 TAB 05/01/17 Hydrochlorothiazide* (Hydrochlorothiazide*) 25 Mg Tab, 25 MG PO DAILY, #30 TAB 05/01/17 Simvastatin* (Zocor*) 20 Mg Tablet, 20 MG PO QHS, #30 TAB 05/01/17 Discontinued Reported Medications Nebivolol* (Bystolic*) 5 Mg Tab, 5 MG PO DAILY, #30 TAB 05/01/17 Discontinued Scripts Ibuprofen* (Motrin*) 600 Mg Tab, 600 MG PO Q6H PRN for PAIN AND OR ELEVATED TEMP, #30 TAB Prov:AGNIESZKA HERNDON MD 02/22/18 Follow-up Plan Follow-up with your primary care physician in 1 week. Primary Care Provider Not On Staff Doctor Time spent on discharge: > 30 minutes Pending Labs Laboratory Tests Test 12/04/18 12:26 12/04/18 18:33 12/04/18 21:14 12/05/18 06:58 Bedside 190 268 158 Glucose mg/dL (70-220) mg/dL (70-220) mg/dL (70-220) White Blood 8.7 Count 10^3/ul (4.8-1 0.8) Red Blood 5.34 Count 10^6/ul (4.70- 6.10) Hemoglobin 17.2 g/dl (14.0-18. 0) Hematocrit 49.4 % (42.0-52.0) Mean 92.5 Corpuscular fl (82.0-101.0 Volume ) Mean 32.2 Corpuscular pg (29.0-33.0) Hemoglobin Mean 34.8 Corpuscular g/dl (32.0-37. Hemoglobin Conc 0) ent Red Cell 11.7 Distribution % (11.5-14.5) Width Platelet Count 284 10^3/UL (140-4 15) Mean Platelet 9.8 Volume fl (7.4-10.4) Immature 0.500 Granulocytes % % (0.001-0.429 ) Neutrophils % 58.8 % (39.0-77.0) Lymphocytes % 32.5 % (15.0-51.0) Monocytes % 6.4 % (0.0-11.0) Eosinophils % 1.1 % (0.0-7.0) Basophils % 0.7 % (0.0-2.0) Nucleated Red 0.0 Blood Cells % /100WBC (0.0-0 .0) Immature 0.040 Granulocytes # 10^3/ul (0.0-0 .031) Neutrophils # 5.1 10^3/ul (1.6-7 .5) Lymphocytes # 2.8 10^3/ul (0.8-2 .9) Monocytes # 0.6 10^3/ul (0.3-0 .9) Eosinophils # 0.1 10^3/ul (0.0-0 .5) Basophils # 0.1 10^3/ul (0.0-0 .1) Nucleated Red 0.0 Blood Cells # 10^3/ul (0.0-0 .0) Test 12/05/18 08:03 Bedside 170 Glucose mg/dL (70-220) JOHANA OCONNOR NP Dec 05, 2018 09:03
== END 2018-12-05 11:09 | disposition home or self-care (01) ==
LOC: E/R 17:20 → TEL 19:45
PROVIDERS: ADMIT Family Medicine; ATTEND Family Medicine
DX: R07.89 Other chest pain (principal); I16.0 Hypertensive urgency; I10 Essential (primary) hypertension; E11.9 Type 2 diabetes mellitus without complications; E78.5 Hyperlipidemia, unspecified; Z72.0 Tobacco use; F39 Unspecified mood [affective] disorder; Z79.82 Long term (current) use of aspirin; Z79.84 Long term (current) use of oral hypoglycemic drugs; R51 Headache
CPT/HCPCS: 36415; 70450; 71045; 80048; 80053; 80061; 82550; 82553; 82962; 83036; 83735; 84100; 84443; 84484; 85025; 93005; 93306; 96374; 96375; J1815; J2270; J2405; Z7500; Z7502; Z7610; G0378

== ENCOUNTER 2019-01-10 06:02 | Emergency (ER) | payer MEDICAID ==
[~2019-01-10] VITALS: Wt 80.1 kg
[~2019-01-10 06:02] MED LIST changes: -IBUP-1542 PO; -NEBI5TAB9 PO; +OMEG100024 PO
--- NOTE | 2019-01-10 06:42 | ERD ---
ER Documentation Chief Complaint Chief Complaint LEFT SIDE BODY NUMBNESS HPI 43-year-old male with history of diabetes, hypertension, hyperlipidemia and anxiety presents to the ED complaining of numbness to the left side of his body and high blood pressure. ROS All systems reviewed and are negative except as per history of present illness. Medications Home Meds Active Scripts [place]-3/Dha/Epa/Fish Oil (Fish Oil 1,000 mg Softgel) 1,000 Mg Capsule, 2000 MG PO BID, #120 CAP 2 capsules (2000 mg) orally twicedaily Prov:JOHANA OCONNOR TALENT ACQUISITION PROGRAM MANAGER 12/05/18 Ranitidine Hcl* (Zantac*) 150 Mg Tablet, 150 MG PO BID, #30 TAB Prov:QUINN NAVARRO DO 05/01/17 Reported Medications Cholecalciferol (Vitamin D3) 5,000 Unit Tablet, 5000 UNIT PO DAILY, TAB 05/01/17 Lisinopril* (Lisinopril*) 40 Mg Tablet, 40 MG PO DAILY, #30 TAB 05/01/17 Amlodipine Besylate* (Norvasc*) 10 Mg Tablet, 10 MG PO DAILY, TAB 05/01/17 Escitalopram Oxalate* (Escitalopram Oxalate*) 10 Mg Tablet, 10 MG PO DAILY, #30 TAB 05/01/17 Empagliflozin (Jardiance) 10 Mg Tablet, 10 MG PO DAILY, TAB 05/01/17 Aspirin* (Aspirin* EC) 81 Mg Tablet.dr, 81 MG PO DAILY, TAB 05/01/17 Metformin Hcl* (Metformin Hcl*) 500 Mg Tablet, 1000 MG PO WITH BREAKFAST DINNE, #60 TAB 05/01/17 Hydrochlorothiazide* (Hydrochlorothiazide*) 25 Mg Tab, 25 MG PO DAILY, #30 TAB 05/01/17 Simvastatin* (Zocor*) 20 Mg Tablet, 20 MG PO QHS, #30 TAB 05/01/17 Allergies Allergies: Coded Allergies: No Known Allergy (Unverified , 12/03/18) PMhx/Soc Reviewed in chart. As per HPI. History of Surgery: Yes (TONSILLECTOMY, LEFT INDEX FINGER SURGERY) Anesthesia Reaction: No Hx Neurological Disorder: No Hx Respiratory Disorders: No Hx Cardiac Disorders: Yes (HTN, HYPERLIPIDEMIA) Hx Psychiatric Problems: Yes (ANXIETY) Hx Miscellaneous Medical Probl: No Hx Alcohol Use: Yes Hx Substance Use: No Hx Tobacco Use: Yes FmHx No sudden cardiac , cancer or subarachnoid hemorrhage Physical Exam Vitals Vital Signs Date Temp Pulse Resp B/P (MAP) Pulse Ox O2 O2 Flow FiO2 Time Delivery Rate 01/10/19 99.0 111 20 194/121 97 06:03 (145) Physical Exam Const: No acute distress Head: Atraumatic Eyes: Normal Conjunctiva ENT: Normal External Ears, Nose and Mouth. Neck: Full range of motion. No meningismus. Resp: Clear to auscultation bilaterally Cardio: Regular rate and rhythm, no murmurs Abd: Soft, non tender, non distended. Normal bowel sounds Skin: No petechiae or rashes Back: No midline or flank tenderness Ext: No cyanosis, or edema Neur: Awake and alert Psych: Normal Mood and Affect Result Diagram: 01/10/1963501/10/19635 Results 24 hrs Laboratory Tests Test 01/10/19 06:28 01/10/19 06:36 Bedside Glucose 166 mg/dL White Blood Count 9.2 10^3/ul Red Blood Count 5.68 10^6/ul Hemoglobin 18.9 g/dl Hematocrit 53.0 % Mean Corpuscular Volume 93.3 fl Mean Corpuscular Hemoglobin 33.3 pg Mean Corpuscular Hemoglobin Concent 35.7 g/dl Red Cell Distribution Width 13.2 % Platelet Count 296 10^3/UL Mean Platelet Volume 9.2 fl Immature Granulocytes % 0.300 % Neutrophils % 57.1 % Lymphocytes % 32.5 % Monocytes % 7.5 % Eosinophils % 1.8 % Basophils % 0.8 % Nucleated Red Blood Cells % 0.0 /100WBC Immature Granulocytes # 0.030 10^3/ul Neutrophils # 5.3 10^3/ul Lymphocytes # 3.0 10^3/ul Monocytes # 0.7 10^3/ul Eosinophils # 0.2 10^3/ul Basophils # 0.1 10^3/ul Nucleated Red Blood Cells # 0.0 10^3/ul Sodium Level 141 mmol/L Potassium Level 4.1 mmol/L Chloride Level 103 mmol/L Carbon Dioxide Level 23 mmol/L Anion Gap 15 Blood Urea Nitrogen 7 mg/dl Creatinine 0.79 mg/dl Est Glomerular Filtrat Rate mL/min > 60 mL/min Glucose Level 163 mg/dl Calcium Level 9.3 mg/dl Troponin I 0.020 ng/ml Current Medications Medications Dose Sig/Karen Start Time Status Last (Trade) Ordered Route PRN Stop Time Admin Dose Reason Admin Lorazepam 1 mg ONCE ONCE 01/10/19 DC 01/10/19 (Ativan) IV 07:00 06:51 01/10/19 07:01 Amlodipine 10 mg ONCE ONCE 01/10/19 DC 01/10/19 Besylate PO 07:00 07:06 (Norvasc) 01/10/19 07:01 Lisinopril 40 mg ONCE ONCE 01/10/19 DC 01/10/19 (Zestril) PO 07:00 07:06 01/10/19 07:01 25 mg ONCE ONCE 01/10/19 DC 01/10/19 Hydrochloroth PO 07:00 07:07 iazide 01/10/19 07:01 (Hydrochlorot hiazide) Procedures/MDM DOCUMENTS REVIEWED: ED nurse, prior ED, prior records LAB INTERPRETATION: [] EKG: Time: 03 13. Sinus rhythm. Ventricular rate 96. Normal RI QRS. No ectopy. Right axis deviation. No acute ST segment elevation or depression. My Interpretation IMAGING: [ ] ED COURSE: [] REEXAMINATION/REEVALUATION: Time: [] MEDICAL DECISION MAKIN-year-old male with history of diabetes, hypertension, hyperlipidemia and anxiety presents to the ED complaining of numbness to the left side of his body and high blood pressure.. Stable for antony velasquez with precautionary instructions and outpatient follow-up as counseled. Counseled patient[ and family] regarding diagnostic workup, diagnosis and need for followup. Understands to return to ED if symptoms recur, worsen or any other concerns. Departure Diagnosis: Primary Impression: Numbness Additional Impressions: Accelerated hypertension Diabetes mellitus type 2 in obese Anxiety Condition: Stable MAGAN STERLING MD January 10, 2019 06:42
[2019-01-10] MEDS ORDERED: LORAZEPAM 2 MG INJ IV ONE (07:00)
[2019-01-10] MEDS ORDERED: LISINOPRIL 20 MG TAB PO ONE (07:00)
[2019-01-10] MEDS ORDERED: HYDROCHLOROTHIAZIDE 25 MG TAB PO ONE (07:00)
[2019-01-10] MEDS ORDERED: AMLODIPINE 10 MG TAB PO ONE (07:00)
[2019-01-10] MEDS ORDERED: ACETAMINOPHEN 500 MG TAB PO STA (07:57)
[2019-01-10] MEDS ORDERED: AMLO-147 PO (10:01)
[2019-01-10] MEDS ORDERED: SIMV20TA PO (10:02)
[2019-01-10] MEDS ORDERED: METF100010 PO (10:02)
[2019-01-10] MEDS ORDERED: LISI40TA3 PO (10:02)
[2019-01-10] MEDS ORDERED: ASPI81TA52 PO (10:02)
[2019-01-10] MEDS ORDERED: EMPA10TA PO (10:03)
[2019-01-10] MEDS ORDERED: HYDR25TA6 PO (10:03)
[2019-01-10] MEDS ORDERED: ESCI10TA PO (10:03)
[2019-01-10] MEDS ORDERED: CHOL500010 PO (10:04)
[2019-01-10] MEDS ORDERED: KETOROLAC 15 MG INJ IV STA (11:39)
[2019-01-10 12:52] VITALS: BP 118/84; PULSE 107; RESP 18
== END 2019-01-10 12:55 | disposition home or self-care (01) ==
LOC: E/R 06:02
DX: R20.0 Anesthesia of skin (principal); I10 Essential (primary) hypertension; E11.9 Type 2 diabetes mellitus without complications; F41.9 Anxiety disorder, unspecified; Z79.82 Long term (current) use of aspirin; Z79.84 Long term (current) use of oral hypoglycemic drugs; Z87.891 Personal history of nicotine dependence
CPT/HCPCS: 36415; 80048; 82962; 84484; 85025; 93005; 96374; 96375; J1885; J2060; Z7502; Z7610

== ENCOUNTER 2019-05-07 14:15 | Emergency (ER) | payer SELFPAY ==
[~2019-05-07] VITALS: Ht 165.1 cm; Wt 81.6 kg
[~2019-05-07 14:15] MED LIST changes: +AMLO-147 PO; -AMLO-218 PO; -ASPI-817 PO; +ASPI81TA52 PO; +ESCI10TA PO; -ESCI10TA48 PO; +IBUP-1542 PO; +METF100010 PO; -METF500T24 PO; -OMEG100024 PO; -RANI150T35 PO
[2019-05-07 14:29] VITALS: Ht 165.1 cm; Wt 81.6 kg
[2019-05-07] MEDS ORDERED: KETOROLAC 30 MG INJ IM STA (14:50)
[2019-05-07] MEDS: NICARDipine HCL 30 MG CAPSULE PO ONE ×2 (15:11→15:43)
[2019-05-07 15:44] VITALS: BP 134/92; PULSE 91; RESP 18
== END 2019-05-07 16:15 | disposition home or self-care (01) ==
LOC: E/R 14:15
DX: I10 Essential (primary) hypertension (principal); E11.9 Type 2 diabetes mellitus without complications; F17.210 Nicotine dependence, cigarettes, uncomplicated; Z79.84 Long term (current) use of oral hypoglycemic drugs; Z79.82 Long term (current) use of aspirin
CPT/HCPCS: 70450; 96372; 99285; J1885